=== PATIENT | female | born 1975 | race Caucasian/White ===

== ENCOUNTER → 2018-03-31 | Outpatient (REF) ==
[~2018-03-31] MED LIST: ABILIFY 10MG TA10 MG PO; ACETAMINOPHEN W1 TA6 PO; AMBIEN 10MG10 MG PO; AMOXICILLIN 50500 MG PO; BACTRIM DS 8001 TAB PO; BUSPAR DIVIDOSE15 MG PO; BUSPAR10 MG PO; CEFTIN250 M1 PO; CEPHALEXIN500 M1 PO; ESCITALOPRAM; FLAGYL500 MG PO; FLOVENT 110MCG7.9 GM IH; FLOVENT DI50 MCG/Act IH; KEFLEX500 MG PO; KLONOPIN 1MG1 MG PO; LEXAPRO5 MG PO; LORTAB 5/500 501 TAB PO; LORTAB 7.5/5001 TAB PO; MINIPRESS2 MG PO; NO HOME MEDICATIONS; NORCO 325 MG-51 TAB PO; PEN-VEE K500 MG PO; PERCOCET 325 MG1 TA2 PO; PERCOCET 5/321 UDTAB PO; PHENERGAN W/CO120 M1 PO; PHENERGAN12.5 M1 PO; PROAIR HFA0.09 MG/AC IH; PROVENTIL0.09 MG/A1 IH; PYRIDIUM200 M1 PO; RIBAVIRIN; RIFAMPIN; SEPTRA DS 800 M1 TAB PO; SEPTRA DS 8001 TAB PO; SEROQUEL25 MG PO; TRAZODONE50 MG PO; ULTRAM 50MG TAB50 MG PO; VALIUM 2MG T2 MG/TAB PO; WELLBUTRIN 75MG75 MG PO; ZOLOFT 50MG50 MG PO; [UNRECOGNIZED DRUG - OTHER] IJ; [UNRECOGNIZED DRUG - REMARK]; pegasys IJ
== END ==
LOC: ZLAB.WCH 08:39
DX: Z01.89 Encounter for other specified special examinations (principal)

== ENCOUNTER 2019-12-20 10:23 | Inpatient (IN) | payer SELFPAY ==
[~2019-12-20] VITALS: Ht 170.3 cm; Wt 111.0 kg
[2019-12-20] VITALS (9 sets, daily range): BP systolic 110–140; BP diastolic 65–90; PULSE 72–96; TEMP 97.7–98
[2019-12-20] MEDS ORDERED: RANITIDINE PO (10:55)
[2019-12-20 14:23] LABS: HEMOGLOBIN 10.5 g/dl (12.5-16.0); MEAN CELL VOLUME 89 fl (80.0-100.0); MEAN CORPUSCULAR HEMOGLOBIN 29 pg (27.0-31.0); MEAN CORPUSCULAR HGB CONC 32 g/dl (33.0-37.0); PLATELET COUNT 426 K/mm3 (130-400); RED BLOOD COUNT 3.69 M/mm3 (4.10-5.30); REDCELL DISTRIBUTION WIDTH-CV 13.6 % (11.5-14.5)
[2019-12-20 14:35] LABS: ALBUMIN 3.7 gm/dL (3.5-5.0); BILIRUBIN,TOTAL 0.4 mg/dL (0.0-1.0); CALCIUM 8.3 mg/dL (8.4-10.2); CREATININE, serum 0.76 (0.52-1.25); POTASSIUM 3.3 mmol/L (3.4-5.0); TOTAL PROTEIN 7.2 gm/dL (6.4-8.2)
[2019-12-20] MEDS ORDERED: IBU800 M1 PO (18:38)
[2019-12-20] MEDS ORDERED: PERCOCET 325 MG1 TA2 PO (18:38)
[2019-12-20] MEDS ORDERED: BACTRIM DS 8001 TAB PO (18:49)
--- NOTE | 2019-12-20 19:00 | NUR ---
RECEIVED FROM PACU ALERT ORIENTED IV TO LAC. ICE TO PERINEUM, SLIGHTLY SWOLLEN PERINEUM. WISHES TO GO HOME TONITE. DAUGHTER IN LAW CONTACTED TO GET PRESCRIPTIONS. 2100 HAS EATEN AND VOIDED EASILY. UP AD JAZMYN. TEACHING MATERIAL REVIEWED.VERBALIZES UNDERSTANDING KRYSTIN SCHNEIDER AND AWA CARE REVIEEWED- PROVIDED TO TAKE HOME. 2209 FAMILY HERE TO TAKE HOME., TO ER DOOR PER WC- ASSIST TO SONS CAR
== END 2019-12-20 22:10 | disposition home or self-care (01) | DRG 747 ==
LOC: COL.ER 10:23 → OB 13:00
PROVIDERS: ADMIT Student in an Organized Health Care Education/Training Program
PROC: 0UBL0ZZ Excision of Vestibular Gland, Open Approach (ICD-10-PCS; 2019-12-20)
PROC: 0U9L0ZZ Drainage of Vestibular Gland, Open Approach (ICD-10-PCS; 2019-12-20)
PROC: 0UBM0ZX Excision of Vulva, Open Approach, Diagnostic (ICD-10-PCS; principal; 2019-12-20 17:00)
DX: N75.0 Cyst of Bartholin's gland (principal); K21.9 Gastro-esophageal reflux disease without esophagitis; F31.9 Bipolar disorder, unspecified; J44.9 Chronic obstructive pulmonary disease, unspecified; F17.210 Nicotine dependence, cigarettes, uncomplicated; Z88.1 Allergy status to other antibiotic agents
CPT/HCPCS: A4314; J0330; J1170; J1885; J2405; J2704; J3010; J7030; J7120

== ENCOUNTER 2024-03-15 00:55 | Emergency (ER) | payer SELFPAY ==
[~2024-03-15] VITALS: Ht 170.2 cm; Wt 104.5 kg
[~2024-03-15 00:55] MED LIST changes: +IBU800 M1 PO; +RANITIDINE PO
[2024-03-15 01:13] VITALS: BP 159/84; TEMP 96.9
[2024-03-15] MEDS ORDERED: NAPROSYN500 MG PO (03:09)
[2024-03-15] MEDS ORDERED: Gabapentin 300 MG CAP PO ONE (03:15)
[2024-03-15] MEDS ORDERED: HYDROcodone/Acetaminophen 7.5-325 MG TAB PO ONE (03:15)
[2024-03-15] MEDS ORDERED: Ketorolac 30 MG/ML VIAL IM ONE (03:15)
[2024-03-15 03:30] VITALS: PULSE 89
== END 2024-03-15 03:30 | disposition home or self-care (01) ==
LOC: COL.ER 00:55
DX: M79.601 Pain in right arm (principal)
CPT/HCPCS: J1885